=== PATIENT | male | born 1965 | race Caucasian/White ===

== ENCOUNTER 2022-02-17 08:43 | Emergency (ER) | payer SELFPAY ==
[~2022-02-17 08:43] MED LIST: Iopamidol 370 76% 100 ML VIAL ONE
[2022-02-17 09:35] LABS: #Basophils 0.1 thou/uL (0.0-0.2); #Eosinphils 0.2 thou/uL (0.0-0.7); #Lymphocytes 1.7 thou/uL (1.20-3.40); #Monocytes 0.8 thou/uL (0.11-0.59); #Neutrophils 9.6 thou/uL (1.40-6.50); %Basophils 0.8 % (0.0-1.0); %Eosinophils 1.9 % (0.0-10.0); %Lymphocytes 13.7 % (21.0-51.0); %Monocytes 6.5 % (0.0-10.0); %Neutrophils 77.2 % (42.0-75.0); Hemoglobin 13.5 g/dL (14.0-18.0); Mean Corpuscular Hemoglobin 30.9 pg (27.0-31.0); Mean Corpuscular Volume 90.8 fl (78.0-98.0); Mean Platelet Volume 5.9 fL (7.4-10.4); Platelet Count 439 10x3/uL (130-400); RBC Distribution Width 10.9 % (11.5-14.5); Red Blood Cell (RBC) Count 4.39 mill/uL (4.70-6.10); White Blood Cell (WBC) Count 12.5 10x3/uL (4.8-10.8)
[2022-02-17 09:43] LABS: Prothrombin Time 13.9 sec (12.0-14.7)
[2022-02-17 09:44] LABS: PTT 31.2 sec (22.9-36.1)
[2022-02-17 09:51] LABS: Clarity Cloudy (Clear)
[2022-02-17 09:52] LABS: Glucose, Urine (Dipstick) Negative (Negative); Leukocyte Unable to Interpret (Negative); Nitrite Positive (Negative); Protein, Urine (Dipstick) > or equal to 300 mg/dL (Neg-Trace)
[2022-02-17 09:53] LABS: Bilirubin Unable to Interpret (Negative); Blood, Urine Large (Negative); Ketone, Urine 5 mg/dL (Negative)
[2022-02-17 09:54] LABS: RBC/HPF Greater than 50 HPF (0-3)
[2022-02-17 09:54] LABS: ALT (SGPT) 24 U/L (8-55); AST (SGOT) 20 U/L (5-34); Albumin 3.6 g/dL (3.5-5.0); Alkaline Phosphatase 76 U/L (40-110); Anion Gap 13 mmol/L (10-20); BUN (Urea Nitrogen) 12 mg/dL (8.4-25.7); Bilirubin, Total 0.5 mg/dL (0.2-1.2); Calc. Creatinine Clearance 0 mL/min (70-130); Carbon Dioxide 25 mmol/L (22-29); Chloride 107 mmol/L (98-107); Estimated GFR 89; Globulin 3.2 g/dL (2.4-3.5); Glucose 96 mg/dL (70-105); Potassium 3.6 mmol/L (3.5-5.1); Protein, Total 6.8 g/dL (6.0-8.3); Sodium 141 mmol/L (136-145)
[2022-02-17 09:55] LABS: Bacteria/HPF 1+ HPF (None Seen)
[2022-02-17] MEDS ORDERED: Sodium Chloride 0.9% 100 ML ONE (10:08)
[2022-02-17] MEDS ORDERED: cefTRIAXone\\ROCEPHIN 2 GM VIAL ONE (10:08)
== END 2022-02-17 10:45 | disposition home or self-care (01) ==
LOC: MADERS 08:43
DX: N39.0 Urinary tract infection, site not specified (principal); N32.89 Other specified disorders of bladder
CPT/HCPCS: 74178; 80053; 81003; 81015; 85025; 85610; 85730; 87086; 96365; J0696; J3490; Q9967

== ENCOUNTER 2022-03-09 07:30 | Emergency (ER) | payer SELFPAY ==
[2022-03-09] MEDS ORDERED: Morphine 4 MG/ML VIAL ONE (08:17)
[2022-03-09] MEDS ORDERED: Ondansetron PF 4 MG/2 ML Vial ONE (08:17)
[2022-03-09 08:20] LABS: Blood, Urine Large (Negative); Protein, Urine (Dipstick) > or equal to 300 mg/dL (Neg-Trace); Specific Gravity, Urine 1.015 (1.005-1.030); pH, Urine 8.5 (5.0-9.0)
[2022-03-09 08:22] LABS: Clarity Bloody (Clear)
[2022-03-09 08:23] LABS: Leukocyte Unable to Interpret (Negative)
[2022-03-09 08:24] LABS: Bilirubin Unable to Interpret (Negative); Glucose, Urine (Dipstick) Unable to Interpret mg/dL (Negative); Ketone, Urine Unable to Interpret mg/dL (Negative); Nitrite Unable to Interpret (Negative); Urobilinogen UNABLE TO INTERPRET mg/dL (Less than 2)
[2022-03-09 08:34] LABS: Bacteria/HPF 1+ HPF (None Seen); RBC/HPF Greater than 50 HPF (0-3); Squamous Epithelial None Seen HPF (0-3)
[2022-03-09 08:38] LABS: #Basophils 0.1 thou/uL (0.0-0.2); #Eosinphils 0.2 thou/uL (0.0-0.7); #Lymphocytes 1.3 thou/uL (1.20-3.40); #Monocytes 0.7 thou/uL (0.11-0.59); #Neutrophils 8.8 thou/uL (1.40-6.50); %Basophils 0.7 % (0.0-1.0); %Eosinophils 1.7 % (0.0-10.0); %Lymphocytes 11.6 % (21.0-51.0); %Monocytes 6.6 % (0.0-10.0); %Neutrophils 79.4 % (42.0-75.0); Hemoglobin 11.7 g/dL (14.0-18.0); Mean Corpuscular HGB CONC 35.5 g/dL (32.0-36.0); Mean Corpuscular Hemoglobin 31.5 pg (27.0-31.0); Mean Corpuscular Volume 88.8 fl (78.0-98.0); Mean Platelet Volume 5.7 fL (7.4-10.4); Platelet Count 439 10x3/uL (130-400); RBC Distribution Width 11.2 % (11.5-14.5); Red Blood Cell (RBC) Count 3.71 mill/uL (4.70-6.10)
[2022-03-09 08:47] LABS: Prothrombin Time 13.9 sec (12.0-14.7)
[2022-03-09 08:52] LABS: ALT (SGPT) 11 U/L (8-55); AST (SGOT) 15 U/L (5-34); Albumin 3.4 g/dL (3.5-5.0); Alkaline Phosphatase 64 U/L (40-110); Anion Gap 16 mmol/L (10-20); BUN (Urea Nitrogen) 14 mg/dL (8.4-25.7); Bilirubin, Total 0.4 mg/dL (0.2-1.2); Calc. Creatinine Clearance 0 mL/min (70-130); Calcium 8.9 mg/dL (7.8-10.44); Carbon Dioxide 21 mmol/L (22-29); Chloride 107 mmol/L (98-107); Estimated GFR 67; Globulin 3.2 g/dL (2.4-3.5); Glucose 90 mg/dL (70-105); Potassium 3.3 mmol/L (3.5-5.1); Protein, Total 6.6 g/dL (6.0-8.3); Sodium 141 mmol/L (136-145)
[2022-03-09] MEDS ORDERED: Phenazopyridine HCl 95 MG TAB ONE (09:28)
[2022-03-09] MEDS ORDERED: Ciprofloxacin 500 MG TAB ONE (09:28)
== END 2022-03-09 09:38 | disposition home or self-care (01) ==
LOC: MADERS 07:30
DX: N30.91 Cystitis, unspecified with hematuria (principal); C67.9 Malignant neoplasm of bladder, unspecified
CPT/HCPCS: 80053; 81003; 81015; 83605; 85025; 85610; 87086; 96374; 96375; J2270; J2405

== ENCOUNTER 2022-03-09 19:01 | Emergency (ER) | payer SELFPAY ==
[2022-03-09] MEDS ORDERED: Ondansetron PF 4 MG/2 ML Vial ONE (20:18)
[2022-03-09] MEDS ORDERED: Morphine 4 MG/ML VIAL ONE (20:18)
== END 2022-03-09 21:46 | disposition home or self-care (01) ==
LOC: MADERS 19:01
DX: R33.9 Retention of urine, unspecified (principal)
CPT/HCPCS: 51702; 96374; 96375; J2270; J2405

== ENCOUNTER 2022-03-10 14:57 | Emergency (ER) | payer SELFPAY | END 2022-03-10 17:44 | disposition home or self-care (01) | LOC: MADERS 14:57 | DX: T83.018A Breakdown (mechanical) of other urinary catheter, initial encounter (principal) | CPT/HCPCS: 51702; 51798 ==

== ENCOUNTER 2022-07-09 05:16 | Emergency (ER) | payer SELFPAY ==
[2022-07-09 06:02] LABS: Clarity Cloudy (Clear)
[2022-07-09 06:12] LABS: Leukocyte Large (Negative)
[2022-07-09 06:13] LABS: Glucose, Urine (Dipstick) Negative (Negative); Protein, Urine (Dipstick) Unable to Interpret mg/dL (Neg-Trace)
[2022-07-09 06:14] LABS: Bilirubin Unable to Interpret (Negative); Blood, Urine Large (Negative); Ketone, Urine 15 mg/dL (Negative); Urobilinogen UNABLE TO INTERPRET mg/dL (Less than 2)
[2022-07-09 06:15] LABS: Nitrite Unable to Interpret (Negative); pH, Urine 8.5 (5.0-9.0)
[2022-07-09 06:16] LABS: Bacteria/HPF 1+ HPF (None Seen); RBC/HPF Greater than 50 HPF (0-3); Squamous Epithelial 0-3 HPF (0-3)
[2022-07-09 07:18] LABS: INR-International Normal Ratio 1.2; Prothrombin Time 15.5 sec (12.0-14.7)
[2022-07-09 07:19] LABS: #Basophils 0.1 thou/uL (0.0-0.2); #Eosinphils 0.1 thou/uL (0.0-0.7); #Lymphocytes 1.4 thou/uL (1.20-3.40); #Monocytes 0.7 thou/uL (0.11-0.59); #Neutrophils 12.2 thou/uL (1.40-6.50); %Basophils 0.6 % (0.0-1.0); %Eosinophils 0.8 % (0.0-10.0); %Lymphocytes 9.5 % (21.0-51.0); %Monocytes 4.9 % (0.0-10.0); %Neutrophils 84.3 % (42.0-75.0); Hemoglobin 7.3 g/dL (14.0-18.0); Mean Corpuscular HGB CONC 32.5 g/dL (32.0-36.0); Mean Corpuscular Hemoglobin 28.1 pg (27.0-31.0); Mean Corpuscular Volume 86.3 fl (78.0-98.0); Mean Platelet Volume 6.1 fL (7.4-10.4); PTT 26.2 sec (22.9-36.1); Platelet Count 413 10x3/uL (130-400); RBC Distribution Width 20.4 % (11.5-14.5); White Blood Cell (WBC) Count 14.5 10x3/uL (4.8-10.8)
[2022-07-09 07:22] LABS: Platelet Morphology Comment Appears Adequate
[2022-07-09 07:28] LABS: ALT (SGPT) 51 U/L (8-55); AST (SGOT) 33 U/L (5-34); Albumin 3.4 g/dL (3.5-5.0); Alkaline Phosphatase 87 U/L (40-110); Anion Gap 13 mmol/L (10-20); BUN (Urea Nitrogen) 20 mg/dL (8.4-25.7); Bilirubin, Total 0.3 mg/dL (0.2-1.2); Calc. Creatinine Clearance 0 mL/min (70-130); Calcium 8.7 mg/dL (7.8-10.44); Carbon Dioxide 22 mmol/L (22-29); Chloride 109 mmol/L (98-107); Estimated GFR 56; Globulin 2.3 g/dL (2.4-3.5); Glucose 100 mg/dL (70-105); Potassium 4.3 mmol/L (3.5-5.1); Protein, Total 5.7 g/dL (6.0-8.3); Sodium 140 mmol/L (136-145)
== END 2022-07-09 08:00 | disposition home or self-care (01) ==
LOC: MADERS 05:16
DX: T83.018A Breakdown (mechanical) of other urinary catheter, initial encounter (principal); C67.9 Malignant neoplasm of bladder, unspecified; F17.210 Nicotine dependence, cigarettes, uncomplicated
CPT/HCPCS: 51702; 80053; 81003; 81015; 83605; 85025; 85610; 85730

== ENCOUNTER 2022-07-11 10:15 | Emergency (ER) | payer SELFPAY | END 2022-07-11 10:24 | disposition left against medical advice (07) | LOC: MADERS 10:15 | DX: Z53.21 Procedure and treatment not carried out due to patient leaving prior to being seen by health care provider (principal) ==